=== PATIENT | female | born 1945 | race Caucasian/White ===

== ENCOUNTER 2017-01-12 09:45 | Day surgery (SDC) | payer MEDICARE, OTHER ==
--- NOTE | ~2017-01-12 | EGD ---
EGD REPORT [facility] [address] [address] NAME: JAYLENE HOWELL : [birth year] STATUS : REG [facility]#: [id number] AGE: 71 ADM/REG DATE : 01/12/17 MR#: [id number] REPORT SERV DATE: 01/12/17 DICTATED BY: DE ORANTES DATE: 01/12/17 REPORT STATUS : Draft [facility]: [facility] DATE: 01/12/17 Endoscopy Center Patient Name: Jaylene Howell Date of : 1945 Attending MD: DE ORANTES MD Procedure Date No Time: 01/12/2017 Procedure: Colonoscopy Indications: FH of Colon Cancer - 1st degree relative, FH of Colonic Polyps - 1st degree relative Referring MD: MAEGAN ANDERSON MD Medicines: as per anesthesia Complications: No immediate complications. Procedure: Pre-Anesthesia Assessment: - ASA Grade Assessment: III - A patient with severe systemic disease. After I obtained informed consent, the scope was passed under direct vision. Throughout the procedure, the patient's blood pressure, pulse, and oxygen saturations were monitored continuously. The PCF [id number] was introduced through the anus and advanced to the cecum, identified by appendiceal orifice and ileocecal valve. The colonoscopy was somewhat difficult due to significant looping and a tortuous colon. The patient tolerated the procedure. The quality of the bowel preparation was fair. Findings: The perianal and digital rectal examinations were normal. Many small and large-mouthed diverticula were found in the sigmoid colon, in the descending colon and in the transverse colon. Internal hemorrhoids were found during endoscopy and were mild. Impression: - Diverticulosis in the sigmoid colon, in the descending colon and in the transverse colon. - Internal hemorrhoids. Recommendation: - Repeat colonoscopy in 5 years for surveillance. Procedure Code(s): --- Professional --- 19042, Colonoscopy, flexible, proximal to splenic flexure; diagnostic, with or without collection of specimen(s) by brushing or washing, with or without colon decompression (separate procedure) Diagnosis Code(s): --- Professional --- EGD REPORT [facility] [address] [place], [place] [address]. [address] NAME: JAYLENE HOWELL : [birth year] STATUS : REG [facility]#: [id number] AGE: 71 ADM/REG DATE : 01/12/17 MR#: [id number] REPORT SERV DATE: 01/12/17 DICTATED BY: DE ORANTES. DATE: 01/12/17 REPORT STATUS : Draft TRANSCRIBED BY: [employer] DATE: 01/12/17 K64.8, Other hemorrhoids K57.30, Diverticulosis of large intestine without perforation or abscess without bleeding Z80.0, Family history of malignant neoplasm of digestive organs Z83.71, Family history of colonic polyps CPT copyright 2013 [employer]. All rights reserved. The codes documented in this report are preliminary and upon security technician review may be revised to meet current compliance requirements. DE ORANTES MD 01/12/2017 1:41 PM This report has been signed electronically. Number of Addenda: 0 Note Initiated On: 01/12/2017 12:54 PM Scope Withdrawal Time 0 hours 10 minutes 1 second [address] [place] [address]
--- NOTE | ~2017-01-12 | EGD ---
EGD REPORT [facility] [address] [address] NAME: JAYLENE HOWELL : [birth year] STATUS : REG [facility]#: [id number] AGE: 71 ADM/REG DATE : 01/12/17 MR#: [id number] REPORT SERV DATE: 01/12/17 DICTATED BY: DE ORANTES DATE: 01/12/17 REPORT STATUS : Draft [facility]ANSCRIBED BY: [facility] DATE: 01/12/17 Endoscopy Center Patient Name: Jaylene Howell Date of : 1945 Attending MD: DE ORANTES MD Procedure Date No Time: 01/12/2017 Procedure: Upper GI endoscopy Indications: Epigastric abdominal pain, Heartburn, Suspected esophageal reflux, Nausea with vomiting Referring MD: MAEGAN ANDERSON MD Medicines: as per anesthesia Complications: No immediate complications. Procedure: Pre-Anesthesia Assessment: - ASA Grade Assessment: III - A patient with severe systemic disease. After obtaining informed consent, the endoscope was passed under direct vision. Throughout the procedure, the patient's blood pressure, pulse, and oxygen saturations were monitored continuously. The GIF [id number] was introduced through the mouth, and advanced to the third part of duodenum. The upper GI endoscopy was accomplished without difficulty. The patient tolerated the procedure. Findings: The examined esophagus was normal. Localized mild inflammation characterized by erythema was found in the gastric antrum. Biopsies were taken with a cold forceps for histology. The cardia and gastric fundus were normal on retroflexion. The examined duodenum was normal. Impression: - Normal esophagus. - Gastritis. Biopsied. - Normal examined duodenum. Recommendation: - Await pathology results. - Follow an antireflux regimen. - Continue present medications. Procedure Code(s): --- Professional --- 88160, Esophagogastroduodenoscopy, flexible, transoral; with biopsy, single or multiple Diagnosis Code(s): --- Professional --- K29.70, Gastritis, unspecified, without bleeding EGD REPORT [facility] [address] [place] [address] NAME: JAYLENE HOWELL : [birth year] [place]US [place] [facility] [place] [id number] AGE: 71 ADM/REG DATE : 01/12/17 MR#: [id number] REPORT SERV DATE: 01/12/17 DICTATED BY: DE ORANTES. DATE: 01/12/17 REPORT STATUS : Draft TRANSCRIBED BY: [employer] DATE: 01/12/17 R10.13, Epigastric pain R12, Heartburn R11.2, Nausea with vomiting, unspecified CPT copyright 2013 [employer]. All rights reserved. The codes documented in this report are preliminary and upon train station server review may be revised to meet current compliance requirements. DE ORANTES MD 01/12/2017 1:08 PM This report has been signed electronically. Number of Addenda: 0 Note Initiated On: 01/12/2017 12:13 PM Scope Withdrawal Time 0 hours 0 minutes 0 seconds [address] [place] [address]
[~2017-01-12 09:45] MED LIST: 15KENA.025; ALLEGRA180 PO; AMOXIL500 MG PO; ANUSOL-HC2.5 % TOP; ASAB PO; ATV.5 PO; CELEXA10 PO; CYMBALTA60 PO; DCN100 PO; ENTOCORT3 PO; FLEXERIL5 MG PO; FLONASE NAS; GENTEAL OPH; KLOR-CON 88 MEQ PO; L20 PO; LEVOTHYROXIN112 MCG PO; LIPITOR80 MG PO; LUTEIN1 CAP PO; LUTEIN10 MG PO; LYRICA50 PO; LYRICA75 PO; MULTIVIT/MIN PO; MULTIVITAMI1 PO; NAMENDA10 MG PO; NORCO1 TAB PO; OSTEO BI-FLEX1 EACH PO; PRILO PO; PRILOSEC40 MG PO; PRIM50B PO; PRIN5 PO; RAZADYNE ER16 MG PO; RAZADYNE4 PO; SYN125 PO; SYSTANE OPH; TOPAMAX100 PO; TOPAMAX50 MG PO; ULTRAM50 PO; VITAMIN B PO; VITAMIN D1000 UNI1 PO; VOLTAREN1 % TOP; WELCHOL 625 MG625 MG PO; WELL100 PO; WELLXL300 PO; ZEASORB TOP; [UNRECOGNIZED DRUG - OTHER] OPH; [UNRECOGNIZED DRUG - OTHER] PO; [UNRECOGNIZED DRUG - OTHER] TOP
[2017-07-05] MEDS ORDERED: ANUSOL-HC2.5 % PR (04:32)
[2017-07-05] MEDS ORDERED: TESS PO (04:34)
[2017-07-05] MEDS ORDERED: CITRUCEL500 MG PO (04:42)
[2017-07-05] MEDS ORDERED: LEVSINTAB PO (05:00)
[2017-07-05] MEDS ORDERED: LUTEIN10 MG PO (05:01)
[2017-07-05] MEDS ORDERED: [UNRECOGNIZED DRUG - OTHER] OPH (05:06)
[2017-07-05] MEDS ORDERED: PRIM50B PO (05:11)
[2017-07-05] MEDS ORDERED: RAZADYNE ER16 MG PO (05:13)
[2017-07-05] MEDS ORDERED: CRESTOR10 PO (05:14)
[2017-07-05] MEDS ORDERED: ZANAFLEX2 MG PO (05:14)
[2017-07-05] MEDS ORDERED: WELCHOL 625 MG625 MG PO (05:15)
[2017-07-05] MEDS ORDERED: ZOFRAN4 PO (05:16)
[2017-07-06] MEDS ORDERED: NORCO1 TA1 PO (16:30)
[2017-07-06] MEDS ORDERED: CELEBREX2 PO (16:31)
== END 2017-01-12 23:59 | disposition home health service (06) ==
LOC: DMU 09:45
PROVIDERS: Internal Medicine Gastroenterology
PROC: 0DJD8ZZ Inspection of Lower Intestinal Tract, Via Natural or Artificial Opening Endoscopic (ICD-10-PCS; principal; 2017-01-12 11:30)
PROC: 0DB68ZX Excision of Stomach, Via Natural or Artificial Opening Endoscopic, Diagnostic (ICD-10-PCS; 2017-01-12 11:30)
DX: Z12.11 Encounter for screening for malignant neoplasm of colon (principal); K57.30 Diverticulosis of large intestine without perforation or abscess without bleeding; K64.8 Other hemorrhoids; E78.00 Pure hypercholesterolemia, unspecified; Z80.0 Family history of malignant neoplasm of digestive organs; M19.90 Unspecified osteoarthritis, unspecified site; F32.9 Major depressive disorder, single episode, unspecified; E03.9 Hypothyroidism, unspecified; Z88.8 Allergy status to other drugs, medicaments and biological substances; Z98.41 Cataract extraction status, right eye; Z83.71 Family history of colonic polyps; Z98.42 Cataract extraction status, left eye; Z90.49 Acquired absence of other specified parts of digestive tract; Z90.710 Acquired absence of both cervix and uterus; Z87.442 Personal history of urinary calculi
CPT/HCPCS: 43239; G0105; 88305

== ENCOUNTER 2017-03-16 23:29 | Emergency (ER) | payer MEDICARE, OTHER ==
[2017-03-16 18:03] LABS: WBC (NOT ORDERED) (RFLEX) 0 (0-5)
[2017-03-16 18:06] LABS: BASOPHILS 0.8 %; BASOPHILS ABSOLUTE 0.05 10/3/uL (0.0-0.16); EOSINOPHILS 4.6 %; EOSINOPHILS ABSOLUTE 0.29 10/3/uL (0.0-0.53); HEMATOCRIT 46.4 % (36.0-48.0); HEMOGLOBIN 16.6 g/dL (12.0-16.0); IMMATURE GRANULOCYTES 0.2 %; IMMATURE GRANULOCYTES ABSOLUTE 0.01 10/3/uL (0.0-0.11); LYMPHOCYTES 32.2 %; LYMPHOCYTES ABSOLUTE 2.03 10/3/uL (0.67-4.30); MANUAL DIFF NO %; MEAN CORPUS HGB CONC 35.8 g/dL (32.0-36.0); MEAN CORPUSCULAR HEMOGLOB 31.9 pg (26.0-34.0); MEAN CORPUSCULAR VOLUME 89.2 fL (80-100); MEAN PLATELET VOLUME 11.8 fL (9.2-13.0); MONOCYTES 8.9 %; MONOCYTES ABSOLUTE 0.56 10/3/uL (0.21-1.20); NEUTROPHILS 53.3 %; NEUTROPHILS ABSOLUTE 3.36 10/3/uL (2.02-8.40); PLATELET COUNT 162 10/3/uL (150-400); RBC DISTRIBUTION WIDTH 12.9 % (12.0-16.0); WHITE BLOOD CELLS 6.3 10/3/uL (4.5-10.5)
[2017-03-16 18:20] LABS: ASCORBIC ACID (UR NOT ORDER) 40 (NEG); BILIRUBIN, URINE NEGATIVE (NEG); ER URINALYSIS TAT 0 Hrs 20 Mins; KETONE, URINE NEGATIVE (NEG); LEUKOCYTE ESTERASE(NOT OR NEG (NEG); NITRITE (URINE) NEG (NEG)
[2017-03-16 18:24] LABS: ALBUMIN 3.8 G/DL (3.5-5.0); BUN (BLOOD UREA NITROGEN) 10 MG/DL (6-23); CALCIUM, SERUM 9.1 MG/DL (8.5-10.4); CHLORIDE, SERUM 110 MMOL/L (96-112); CO2 (CARBON DIOXIDE) 30 MMOL/L (24-34); CREATININE 0.99 MG/DL (0.55-1.02); GFR AFRICAN AMERICAN 66 ML/MIN (>=60); GFR NON AFRICAN AMERICAN 57 ML/MIN (>=60); POTASSIUM, SERUM 3.5 MMOL/L (3.5-5.3); SGOT(AST) 26 U/L (5-40); SGPT(ALT) 34 U/L (5-65); SODIUM, SERUM 146 MMOL/L (135-148); TOTAL BILIRUBIN 0.5 MG/DL (0-1.2); TOTAL PROTEIN 7.3 G/DL (6.0-8.5)
[2017-03-16 18:37] LABS: A/G RATIO 1.1 (0.7-1.9); ALKALINE PHOSPHATASE 71 U/L (45-117); GLOBULIN 3.5 G/DL (2.5-4.1); GLUCOSE, SERUM 76 MG/DL (60-99)
[2017-07-05] MEDS ORDERED: ANUSOL-HC2.5 % PR (04:32)
[2017-07-05] MEDS ORDERED: TESS PO (04:34)
[2017-07-05] MEDS ORDERED: CITRUCEL500 MG PO (04:42)
[2017-07-05] MEDS ORDERED: LEVSINTAB PO (05:00)
[2017-07-05] MEDS ORDERED: LUTEIN10 MG PO (05:01)
[2017-07-05] MEDS ORDERED: [UNRECOGNIZED DRUG - OTHER] OPH (05:06)
[2017-07-05] MEDS ORDERED: PRIM50B PO (05:11)
[2017-07-05] MEDS ORDERED: RAZADYNE ER16 MG PO (05:13)
[2017-07-05] MEDS ORDERED: CRESTOR10 PO (05:14)
[2017-07-05] MEDS ORDERED: ZANAFLEX2 MG PO (05:14)
[2017-07-05] MEDS ORDERED: WELCHOL 625 MG625 MG PO (05:15)
[2017-07-05] MEDS ORDERED: ZOFRAN4 PO (05:16)
[2017-07-06] MEDS ORDERED: NORCO1 TA1 PO (16:30)
[2017-07-06] MEDS ORDERED: CELEBREX2 PO (16:31)
== END 2017-03-17 01:15 | disposition home or self-care (01) ==
LOC: ER 23:29
PROVIDERS: Emergency Medicine
DX: M54.31 Sciatica, right side (principal); I10 Essential (primary) hypertension; F03.90 Unspecified dementia, unspecified severity, without behavioral disturbance, psychotic disturbance, mood disturbance, and anxiety; F41.9 Anxiety disorder, unspecified; F32.9 Major depressive disorder, single episode, unspecified; Z87.442 Personal history of urinary calculi; Z88.8 Allergy status to other drugs, medicaments and biological substances; Z79.899 Other long term (current) drug therapy; Z79.82 Long term (current) use of aspirin
CPT/HCPCS: 74176; 80053; 81001; 83605; 83690; 85025; 96374; 96375; 99284; J2405